=== PATIENT | female | born 1945 | race Caucasian/White ===

== ENCOUNTER → 2016-12-02 | Outpatient (CLI) | payer OTHER ==
--- NOTE | 2016-12-02 16:15 | DX ---
PA and Lateral Chest December 02, 2016 Indication: Cough. Comparison: None. Findings: Lungs have mild diffuse peribronchial thickening. No pulmonary nodule, airspace consolidati on, edema, or effusion. Minimal diffuse peribronchial thickening is present throughout the mid and lo wer lung zones. A benign calcified granuloma projects in the superior segment left lower lobe, and del cid rgical clips are present in bilateral axillae The heart is minimally enlarged, and the thoracic aorta has minimal calcified mural plaque. Impression: 1. Mild bronchitis. 2. No pulmonary nodule or mass. 3. Minimal cardiomegaly. No failure.
== END ==
LOC: FIMAGING 15:01
PROVIDERS: ATTEND Family Medicine
DX: J40 Bronchitis, not specified as acute or chronic (principal)

== ENCOUNTER 2016-12-11 10:17 | Emergency (ER) | payer OTHER ==
[2016-12-11 10:44] VITALS: BP 138/76; PULSE 74; RESP 16; TEMP 97.7; O2SAT 96
[2016-12-11 11:58] LABS: ADD DIFF? NO; ADD MORPH? NO; ADD SCAN? NO; ATYPICAL LYMPHOCYTE FLAG 0 (0-99); FRAGMENT RBC FLAG 0 (0-99); HEMATOCRIT 46.5 % (38.0-47.0); LEFT SHIFT FLG 0 (0-99); LIPEMIA HEMOLYSIS FLAG 90 (0-99); MEAN CELL HEMOGLOBIN CONCENTR. 34.4 g/dL (32.4-36.7); MEAN PLATELET VOLUME 12.4 fL (8.7-11.7); PLATELET CLUMPS FLAG 10 (0-99); PLATELET COUNT 217 10^3/uL (150-400); RED CELL DISTRIBUTION WIDTH 12.5 % (11.5-15.2)
[2016-12-11 12:00] LABS: COLOR YELLOW; LEUKOCYTE ESTERASE,URINE TRACE (NEGATIVE); NITRITE,URINE NEGATIVE (NEGATIVE); PH,URINE 7.5 (5.0-7.5)
[2016-12-11 12:04] LABS: ANION GAP 14 mEq/L (8-16); CALCIUM 9.7 mg/dL (8.5-10.4); CARBON DIOXIDE 30 mEq/l (22-31); CHLORIDE 98 mEq/L (97-110); CREATININE 0.9 mg/dL (0.6-1.0); GLOMERULAR FILTRATION RATE > 60; GLUCOSE 86 mg/dL (70-100); SODIUM 142 mEq/L (134-144)
[2016-12-11 12:23] LABS: BACTERIA TRACE /hpf (NONE SEEN); MUCUS 1+ /lpf (NONE-1+); RBC,URINE 0-1 /hpf (0-3)
--- NOTE | 2016-12-11 13:05 | UCPHY ---
[id number] AT 8:30 PM, BETTER THIS AM, WENT FOR A 2 MILE WALK AND THEN PAIN RETURNED AT THIS TIME NO PAIN, DENIES ALL OTHER SYMPTOMS Time Seen by Provider: 12/11/16 10:35 HPI/ROS: CHIEF COMPLAINT: Abdominal pain, left-sided HISTORY OF PRESENT ILLNESS: REVIEW OF SYSTEMS: This is a 71-year-old female with a remote history of breast cancer who presents with left-sided abdominal pain. This pain came on acutely last night around 8:30 p.m.. She describes it as being located on the left side, to the left of her navel. The pain was sharp. It lasted most of the night. This morning she was doing better and was able to take a walk. However the pain resurfaced, lasting for around 10 minutes. She is not currently experiencing abdominal pain. She has not had fever. She denies nausea or vomiting. She has not had constipation. She has a 2 year history of frequent stooling. No blood in her stool. Her stools are not soft. She did not have bowel incontinence. She is taking a powder that is design to decrease frequency of stooling. This powder was provided by an butadiene compressor operator and seems to have a good effect. She also takes digestive enzymes. She is due for a colonoscopy at the beginning of December. She had a polyp removed on a previous colonoscopy. She denies urinary urgency or frequency. No dysuria. A ten point review of systems was performed and is negative with the exception of the items mentioned in the HPI. Source: Patient Exam Limitations: No limitations - Personal History Current Tetanus/Diphtheria Vaccine: Yes Tetanus Vaccine Date: < 10 YEARS - Medical/Surgical History Hx Asthma: No Hx Chronic Respiratory Disease: No Hx Diabetes: No Hx Cardiac Disease: No Hx Renal Disease: No Hx Cirrhosis: No Hx Alcoholism: No Hx HIV/AIDS: No Hx Splenectomy or Spleen Trauma: No Other PMH: 1. BREAST CANCER 2004 status post right breast lumpectomy/radiation/ chemotherapy. 2. Left breast cancer treated with radiation, diagnosed 2012. 3. Bronchitis throughout most of this winter - Family History Significant Family History: No pertinent family hx - Social History Smoking Status: Never smoked Additional Social History: She is a retired psychologist. She does not use tobacco products. She has a glass of wine daily. - Physical Exam Exam: General Appearance: Alert. Vital signs reviewed. Blood pressure 138/76. Eyes: Pupils equal and round, no conjunctival injection, no discharge. Anicteric. ENT, Mouth: Mucous membranes are moist, no oropharyngeal erythema or edema. Neck: No lymphadenopathy, supple. Respiratory: Lungs are clear to auscultation; no wheezes, rales, or rhonchi. Cardiovascular: Regular rate and rhythm; no murmur, rub, or gallop. Gastrointestinal: Abdomen is soft and mildly tender on the left side just lateral to her navel, no masses or organomegaly, bowel sounds normal. Skin: Warm and dry, no rashes on exposed skin, normal color. Back: Nontender to palpation over the thoracolumbar spine. No CVAT. Extremities: No lower extremity edema, no calf tenderness or swelling. Neurological: Alert and oriented. Moving all four extremities easily and equally. Psychiatric: Normal affect. Constitutional: Initial Vital Signs Temperature (C) 36.5 C 12/11/16 10:40 Heart Rate 74 12/11/16 10:40 Respiratory Rate 16 12/11/16 10:40 Blood Pressure 138/76 H 12/11/16 10:40 O2 Sat (%) 96 12/11/16 10:40 O2 Delivery Mode Room Air Allergies/Adverse Reactions: No Known Allergies Allergy (Unverified 12/11/16 10:44) Home Medications: Medication Instructions Recorded Cephalexin [Keflex] 500 mg PO BID #10 cap 12/11/16 Exemestane 12/11/16 LORazepam 12/11/16 Statin 12/11/16 Wellbutrin 12/11/16 Medical Decision Making ED Course/Re-evaluation: CBC and chemistries reviewed and normal. She is not experiencing abdominal pain during my evaluation but did have some mild left-sided abdominal pain on exam. No fever. She moves her bowels frequently in it seems unlikely that this would be constipation given the history that she provides. Diverticulitis is a possibility but she has not had fever, diarrhea, or blood in her stool. I do not recommend imaging for diverticulitis at this point in time, given the paucity of her symptoms.Location of her pain rules against gastritis, pancreatitis, or cholecystitis. Urinalysis is positive for leukocyte esterase and bacteria. She does not report urinary tract symptoms but it is possible that her left-sided abdominal pain is from a urinary tract infection. She is being started on Keflex for treatment of presumed urinary tract infection. A urine culture has been sent. She has an appointment with her primary care physician day after tomorrow and I am recommending that she keep this appointment. We reviewed the danger signs that should prompt her to be re- evaluated immediately. Her blood pressure is mildly elevated today. This will be rechecked when she sees her primary care physician. Differential Diagnosis: Abdominal pain including but not limited to appendicitis, cholecystitis, pancreatitis, diverticulitis, bowel obstruction, gastritis and urinary tract infection. - Data Points Laboratory Results: Laboratory Results 12/11/16 11:50 12/11/16 11:50 12/11/16 11:50 WBC 4.78 10^3/uL (3.80-9.50) RBC 5.00 10^6/uL (4.18-5.33) Hgb 16.0 g/dL (12.6-16.3) Hct 46.5 % (38.0-47.0) MCV 93.0 fL (81.5-99.8) MCH 32.0 pg (27.9-34.1) MCHC 34.4 g/dL (32.4-36.7) RDW 12.5 % (11.5-15.2) Plt Count 217 10^3/uL (150-400) MPV 12.4 H fL (8.7-11.7) Neut % (Auto) 48.8 % (39.3-74.2) Lymph % (Auto) 43.5 % (15.0-45.0) [place] % (Auto) 6.5 % (4.5-13.0) Eos % (Auto) 0.6 % (0.6-7.6) Baso % (Auto) 0.6 % (0.3-1.7) Nucleat RBC Rel Count 0.0 % (0.0-0.2) Absolute Neuts (auto) 2.33 10^3/uL (1.70-6.50) Absolute Lymphs (auto) 2.08 10^3/uL (1.00-3.00) Absolute Monos (auto) 0.31 10^3/uL (0.30-0.80) Absolute Eos (auto) 0.03 10^3/uL (0.03-0.40) Absolute Basos (auto) 0.03 10^3/uL (0.02-0.10) Absolute Nucleated RBC 0.00 10^3/uL (0-0.01) Immature Gran % 0.0 % (0.0-1.1) Immature Gran # 0.00 10^3/uL (0.00-0.10) Sodium 142 mEq/L (134-144) Potassium 4.0 mEq/L (3.5-5.2) Chloride 98 mEq/L (97-110) Carbon Dioxide 30 mEq/l (22-31) Anion Gap 14 mEq/L (8-16) BUN 22 mg/dL (7-23) Creatinine 0.9 mg/dL (0.6-1.0) Estimated GFR > 60 Glucose 86 mg/dL (70-100) Calcium 9.7 mg/dL (8.5-10.4) Urine Color YELLOW Urine Appearance CLEAR Urine pH 7.5 (5.0-7.5) Ur Specific [place] 1.010 (1.002-1.030) Urine Protein NEGATIVE (NEGATIVE) Urine Ketones NEGATIVE (NEGATIVE) Urine Blood NEGATIVE (NEGATIVE) Urine Nitrate NEGATIVE (NEGATIVE) Urine Bilirubin NEGATIVE (NEGATIVE) Urine Urobilinogen 0.2 EU (0.2-1.0) Ur Leukocyte Esterase TRACE H (NEGATIVE) Urine RBC 0-1 /hpf (0-3) Urine WBC 1-3 /hpf (0-3) Ur Epithelial Cells TRACE /lpf (NONE-1+) Urine Bacteria TRACE H /hpf (NONE SEEN) Urine Mucus 1+ /lpf (NONE-1+) Ur Culture Indicated? INDICATED H (NI) Urine Glucose NEGATIVE (NEGATIVE) Departure - Departure Disposition: Home, Routine, Self-Care Clinical Impression: Urinary tract infection Qualifiers: Urinary tract infection type: acute cystitis Hematuria presence: without hematuria Qualifier Code: (N30.00) Acute cystitis without hematuria Abdominal pain Qualifiers: Abdominal location: left upper quadrant Qualifier Code: (R10.12) Left upper quadrant pain Instructions: Urinary Tract Infection in Women (ED), Acute Abdominal Pain (ED) Additional Instructions: Follow-up on Tuesday at [facility] as planned. If something worsens or changes--severe persistent pain, diarrhea or bloody diarrhea, vomiting, fever, any new or concerning symptoms--please be re- evaluated sooner. As we discussed, I am concerned that there might be a urinary tract infection. I am starting you on an antibiotic called Keflex. It is taken twice daily for 5 days. Start the Keflex today. Referrals: Lizzette Mayfield MD [Primary Care Provider] - As per Instructions Prescriptions: Cephalexin [Keflex] 500 mg PO BID #10 cap - PQRS PQRS Measurement: 134: Depression screening and followup, PRIME MD-PHQ2 (12 years and older) Over the last 2 weeks, how often have you been bothered by any of the following problems? 1. Feeling down, depressed, or hopeless? 2. Little interest or pleasure in doing things? Patient answered no to both 1 and 2 130: Documentation of medications. Reviewed all patient medications, doses, route and frequency. 226: Do you smoke? No. 47: 65 and older: Advanced care planning. Patient has advanced directive. 51: 18 years old and older with diagnosis of COPD, spirometry performance. Patient has no history of COPD 52: 18 years old and older with COPD and symptoms of COPD or FEV1<60% predicted prescribed a B Agonist. Does not apply.
== END 2016-12-11 13:08 | disposition home or self-care (01) ==
LOC: CED 10:17
DX: N30.00 Acute cystitis without hematuria (principal); Z85.3 Personal history of malignant neoplasm of breast; Z92.3 Personal history of irradiation; Z92.21 Personal history of antineoplastic chemotherapy
CPT/HCPCS: 80048-PO; 81003-PO; 81015-PO; 85025-PO; 99214-PO; G0463-PO

== ENCOUNTER → 2017-02-28 | Outpatient (CLI) | payer OTHER | LOC: FIMAGING 09:28 | DX: Z12.31 Encounter for screening mammogram for malignant neoplasm of breast (principal); Z85.3 Personal history of malignant neoplasm of breast; Z80.3 Family history of malignant neoplasm of breast | CPT/HCPCS: G0202 ==

== ENCOUNTER → 2018-02-27 | Outpatient (CLI) | payer OTHER | LOC: FIMAGING 12:47 | PROVIDERS: ATTEND Internal Medicine Hematology & Oncology | DX: Z13.820 Encounter for screening for osteoporosis (principal); M85.89 Other specified disorders of bone density and structure, multiple sites; Z78.0 Asymptomatic menopausal state; Z85.3 Personal history of malignant neoplasm of breast; Z96.642 Presence of left artificial hip joint ==

== ENCOUNTER → 2018-03-09 | Outpatient (CLI) | payer OTHER | LOC: FIMAGING 10:01 | PROVIDERS: ATTEND Internal Medicine Hematology & Oncology | DX: Z12.31 Encounter for screening mammogram for malignant neoplasm of breast (principal); Z85.3 Personal history of malignant neoplasm of breast; Z80.3 Family history of malignant neoplasm of breast ==

== ENCOUNTER → 2019-03-19 | Outpatient (CLI) | payer OTHER | LOC: FIMAGING 15:38 | PROVIDERS: ATTEND Internal Medicine Hematology & Oncology | DX: Z12.31 Encounter for screening mammogram for malignant neoplasm of breast (principal); Z85.3 Personal history of malignant neoplasm of breast; Z80.3 Family history of malignant neoplasm of breast ==

== ENCOUNTER 2019-04-25 09:56 | Inpatient (IN) | payer OTHER | END 2019-04-26 12:12 | disposition home or self-care (01) | LOC: F3N 09:56 ==